=== PATIENT | male | born 1980 | race Caucasian/White ===

== ENCOUNTER 2018-03-16 11:46 | Emergency (ER) | payer SELFPAY ==
[~2018-03-16] VITALS: Ht 182.9 cm; Wt 72.7 kg
[2018-03-16 11:50] VITALS: Ht 182.9 cm; Wt 72.7 kg
[2018-03-16] MEDS ORDERED: OMEPRAZOLE40 MG PO (11:53)
[2018-03-16 12:30] LABS: ALBUMIN 4.4 g/dL (3.4-5.0); ALKALINE PHOSPHATASE 46 U/L (46-116); ALT (SGPT) 17 U/L (10-68); BILIRUBIN - TOTAL 0.28 mg/dL (0.2-1.3); CALC OSMOLALITY 275 mosm/kg (275-300); CARBON DIOXIDE 31.5 mmol/L (21.0-32.0); CHLORIDE - SERUM 102 mmol/L (98-107); CREATININE - SERUM 0.9 mg/dL (0.6-1.3); GLUCOSE 86 mg/dL (74-106); POTASSIUM - SERUM 4.4 mmol/L (3.5-5.1); PROTEIN - SERUM 8.1 g/dL (6.4-8.2); SODIUM 139 mmol/L (136-145); UREA NITROGEN 11 mg/dL (7-18); eGFR NON AFRICAN AMERICAN > 90 mL/min (90-120)
[2018-03-16 12:34] LABS: AMYLASE - SERUM 62 U/L (25-115); LIPASE 97 U/L (73-393); TROPONIN-I < 0.017 ng/mL (0.000-0.060)
[2018-03-16 12:49] LABS: BASOPHILS 0.8 % (0-2); EOSINOPHILS 3.7 % (0-7); HEMATOCRIT 40.7 % (42.0-54.0); LYMPHOCYTES 37.9 % (15-50); MCH 30.4 pg (26.0-34.0); MCHC 34.4 g/dL (31.0-37.0); MCV 88.5 fL (80.0-100.0); MEAN PLATELET VOLUME 9.5 fL (7.4-10.4); MONOCYTES 8.8 % (2-11); NEUTROPHILS 48.8 % (40-80); PLATELET COUNT 207 10x3/uL (130-400); RDW 12.9 % (11.5-14.5); WBC 5.9 10x3/uL (4.8-10.8)
[2018-03-16 13:26] LABS: APPEARANCE CLEAR (CLEAR); BACTERIA NONE SEEN /hpf (NONE SEEN); BILIRUBIN NEGATIVE (NEGATIVE); COLOR STRAW (YELLOW); EPITHELIAL CELLS OCC /hpf (0-5); GLUCOSE NEGATIVE (NEGATIVE); KETONE NEGATIVE (NEGATIVE); NITRITE NEGATIVE (NEGATIVE); PROTEIN NEGATIVE (NEGATIVE); SPECIFIC GRAVITY 1.005 (1.005-1.020); UROBILINOGEN NORMAL (NORMAL); WHITE CELLS - URINE RARE /hpf (0-5)
[2018-03-16 16:23] VITALS: BP 119/70
== END 2018-03-16 16:25 | disposition home or self-care (01) ==
LOC: D.ER 11:46
PROVIDERS: Emergency Medicine
DX: R10.84 Generalized abdominal pain (principal); R07.89 Other chest pain; R11.0 Nausea; F17.200 Nicotine dependence, unspecified, uncomplicated